=== PATIENT | female | born 1970 | race Caucasian/White ===

== ENCOUNTER 2024-02-17 14:00 | Emergency (ER) | payer BC, OTHER ==
[2024-02-17] MEDS ORDERED: Ketorolac Tromethamine 30 MG (1 mL) VIAL ONE (14:35)
== END 2024-02-17 15:30 | disposition home or self-care (01) ==
LOC: BURERS 14:00
DX: S96.912A Strain of unspecified muscle and tendon at ankle and foot level, left foot, initial encounter (principal); K21.9 Gastro-esophageal reflux disease without esophagitis; I10 Essential (primary) hypertension; X50.1XXA Overexertion from prolonged static or awkward postures, initial encounter; Y99.0 Civilian activity done for income or pay; Z79.899 Other long term (current) drug therapy
CPT/HCPCS: 96372; 99283; J1885